=== PATIENT | female | born 1955 | race Caucasian/White ===

== ENCOUNTER → 2016-08-19 | Outpatient (CLI) | payer BC ==
--- NOTE | 2016-08-19 14:45 | KCIC ---
PROCEDURE Two-view chest HISTORY Productive cough. COMPARISON None FINDINGS The cardiac silhouette is mildly enlarged in transverse diameter. No evidence of active congestive failure. No pneumothorax, pleural effusion or focal airspace consolidation. IMPRESSION 1. No focal airspace consolidation. 2. The cardiac silhouette is mildly enlarged in transverse diameter. Electronically signed by: Tanner Gibbons MD (Aug 19, 2016 14:43:36)
== END | disposition home or self-care (01) ==
LOC: KCIC 14:08
PROVIDERS: ATTEND Physician Assistant Medical
DX: I51.7 Cardiomegaly (principal)
CPT/HCPCS: 71020

== ENCOUNTER → 2017-05-28 | Outpatient (CLI) | payer BC ==
--- NOTE | 2017-05-28 12:56 | CARD ---
APPROVED REPORT EXAM: Two-dimensional and M-mode echocardiogram with Doppler and color Doppler. Other Information Quality : GoodHR: 68bpm INDICATION Hypertension/HCVD RISK FACTORS Hypertension 2D DIMENSIONS RVDd2.7 (2.9-3.5cm)Left Atrium(2D)3.2 (1.6-4.0cm) IVSd1.3 (0.7-1.1cm)Aortic Root(2D)2.3 (2.0-3.7cm) LVDd3.6 (3.9-5.9cm)LVOT Diameter1.8 (1.8-2.4cm) PWd1.0 (0.7-1.1cm)IVSs1.7 (0.8-1.2cm) LVDs2.1 (2.5-4.0cm)FS (%) 40.8 % PWs1.4 (0.8-1.2cm)SV39.8 ml LVEF(%)72.6 (>50%) M-Mode DIMENSIONS IVSd1.03 (0.7-1.1cm)LVDd4.20 (4.0-5.6cm) PWd1.24 (0.7-1.1cm)IVSs1.24 cm FS (%) 45 %LVDs2.31 (2.0-3.8cm) PWs1.78 cmLVEF(%)77 (>50%) Aortic Valve AoV Peak Boone.165.2cm/sAoV VTI43.1cm AO Peak GR.10.9mmHgLVOT Peak Boone.97.3cm/s LVOT VTI 25.79cmAO Mean GR.7mmHg SHAQUILLE (VMAX)1.54uo3NQQ (VTI)1.60cm2 Mitral Valve MV E Hljgpmfb939.0cm/sMV E Peak Gr.151mmHg MV DECEL EHGW623zwOB A Tqcfsqbg15.3cm/s MV NVC24jvB/A Ratio1.9 MVA (PHT)4.07cm2 TDI E/Lateral E'12.7E/Medial E'14.5 Pulmonary Valve PV Peak Nsaoyyhg04.9cm/sPV Peak Grad.2mmHg Tricuspid Valve TR P. Qaegkkcs489rt/sRAP HFEESHUY9rjCf TR Peak Gr.47qpJkGLGE03udNf LEFT VENTRICLE The left ventricle is normal size. There is mild concentric left ventricular hypertrophy. The left ve ntricular systolic function is normal. The ejection fraction is estimated at 60-65%. There is normal LV segmental wall motion. The left ventricular diastolic function and filling is normal for age. RIGHT VENTRICLE The right ventricle is normal size. There is normal right ventricular wall thickness. The right ventr icular systolic function is normal. ATRIA The left atrium size is normal. The right atrium size is normal. The interatrial septum is intact wit h no evidence for an atrial septal defect or patent foramen ovale as noted on 2-D or Doppler imaging. AORTIC VALVE The aortic valve is thickened but opens well. Doppler and Color Flow revealed trace aortic regurgitat ion. There is no significant aortic valvular stenosis. MITRAL VALVE The mitral valve is thickened but opens well. There is no evidence of mitral valve prolapse. There is no mitral valve stenosis. Doppler and Color-flow revealed moderate mitral regurgitation. TRICUSPID VALVE The tricuspid valve leaflets are thickened , but open well. Doppler and Color Flow revealed mild tric uspid regurgitation. PULMONIC VALVE Pulmonic valve was not visualized. Doppler and Color Flow revealed no pulmonic valvular regurgitation . There is no pulmonic valvular stenosis. GREAT VESSELS The aortic root is normal in size. The ascending aorta is normal in size. The IVC is normal in size a nd collapses >50% with inspiration. PERICARDIAL EFFUSION There is no pleural effusion. There is no evidence of significant pericardial effusion. Critical Notification Critical Value: No <Conclusion> The left ventricular systolic function is normal. The ejection fraction is estimated at 60-65%. There is normal LV segmental wall motion. Trace aortic regurgitation. Moderate mitral regurgitation. Mild tricuspid regurgitation. There is no evidence of significant pericardial effusion.
== END | disposition home or self-care (01) ==
LOC: ECHO 10:46
PROVIDERS: ATTEND Internal Medicine Cardiovascular Disease
DX: I11.9 Hypertensive heart disease without heart failure (principal); I34.0 Nonrheumatic mitral (valve) insufficiency
CPT/HCPCS: 93306

== ENCOUNTER → 2017-07-21 | Outpatient (CLI) | payer BC | END | disposition home or self-care (01) | LOC: KCIC 13:56 | DX: J20.9 Acute bronchitis, unspecified (principal) | CPT/HCPCS: 71046 ==

== ENCOUNTER → 2017-12-03 | Outpatient (CLI) | payer OTHER | END | disposition home or self-care (01) | LOC: ECHO 09:45 | DX: I34.0 Nonrheumatic mitral (valve) insufficiency (principal); I10 Essential (primary) hypertension; I51.7 Cardiomegaly | CPT/HCPCS: 93306 ==

== ENCOUNTER → 2017-12-08 | Outpatient (CLI) | payer OTHER ==
[2017-12-08 09:41] LABS: CHOLESTEROL 181 mg/dL (0-200); HDLC 59 mg/dL (40-60); LDLC 96 mg/dL (0-100); NON-HDL CHOLESTEROL 122 mg/dL (0-129); TRIGLYCERIDES 130 mg/dL (0-150); VLDLC 26 mg/dL (0-40)
[2017-12-08 09:54] LABS: CHOLESTEROL/HDL RATIO 3.1
== END | disposition home or self-care (01) ==
LOC: LAB 09:03
DX: E78.5 Hyperlipidemia, unspecified (principal)
CPT/HCPCS: 36415; 80061

== ENCOUNTER → 2017-12-23 | Outpatient (CLI) | payer OTHER | END | disposition home or self-care (01) | LOC: US 08:34 | DX: M79.604 Pain in right leg (principal); M79.605 Pain in left leg; M79.89 Other specified soft tissue disorders; I10 Essential (primary) hypertension | CPT/HCPCS: 93970 ==

== ENCOUNTER → 2018-03-29 | Outpatient (CLI) | payer OTHER | END | disposition home or self-care (01) | LOC: SPEC 17:03 | PROVIDERS: ATTEND Obstetrics & Gynecology | DX: Z12.4 Encounter for screening for malignant neoplasm of cervix (principal) | CPT/HCPCS: 88175 ==

== ENCOUNTER → 2018-04-21 | Outpatient (CLI) | payer OTHER ==
--- NOTE | 2018-04-27 10:56 | KCIC ---
EXAM: Bilateral digital screening mammogram with tomosynthesis. HISTORY: 62-year-old female presents for screening mammography. TECHNIQUE: Full-field digital craniocaudal and mediolateral oblique 2D and 3D tomosynthesis images of both breasts are obtained for evaluation. Computer aided detection with AnexonD software version 9.3 was applied. COMPARISON: 06/03/2017 and 06/03/2006 BREAST PARENCHYMAL DENSITY: Level C - Heterogeneously dense. FINDINGS: There are multiple circumscribed and partially circumscribed nodular densities throughout both breasts, the appearance and multiplicity of which favors a benign etiology such as cysts. There has been slight interval increase in a nodular density within the 3:30 position of the left breast at anterior to mid depth, also likely a cyst. There is no architectural distortion or suspicious calcification. IMPRESSION: BI-RADS Category 0: Additional imaging needed. RECOMMENDATION: Slight interval increase in a nodular density within the 3:30 position of the left breast, likely a cyst given the presence of multiple additional stable benign-appearing nodular densities within both breasts. Sonographic imaging of this location is recommended to confirm benignity. If your mammogram demonstrates that you have dense breast tissue, which could hide abnormalities, and if you have other risk factors for breast cancer that have been identified, you might benefit from supplemental screening tests that may be suggested by your ordering physician. Dense breast tissue, in and of itself, is a relatively common condition. This information is not provided to cause undue concern, but rather to raise your awareness and to promote discussion with your physician regarding the presence of other risk factors, in addition to dense breast tissue. A report of your mammography results will be sent to you and your physician. You should contact your physician if you have any questions or concerns regarding this report. Mammography is a sensitive method for finding small breast cancers, but it does not detect them all and is not a substitute for careful clinical examination. A negative mammogram does not negate a clinically suspicious finding and should not result in delay in biopsying a clinically suspicious abnormality. PQRS compliance statement - Patient information was entered into a reminder system with a target due date for the next mammogram. "Our facility is accredited by the [employer] Mammography [employer]." Electronically signed by: Светлана Sahni MD (04/27/2018 10:53 AM) [facility]
== END | disposition home or self-care (01) ==
LOC: KCIC MAMMO 14:18
PROVIDERS: ATTEND Obstetrics & Gynecology
DX: Z12.31 Encounter for screening mammogram for malignant neoplasm of breast (principal)
CPT/HCPCS: 77063; 77067

== ENCOUNTER → 2018-05-13 | Outpatient (CLI) | payer OTHER ==
--- NOTE | 2018-05-13 16:16 | KCIC ---
Left breast ultrasound: Reason for examination: Nodular densities on screening mammogram. Comparison is made to mammographic exam dated 04/21/2018. Left whole breast ultrasound including evaluation of all 4 quadrants and the retroareolar and axillary regions of the left breast was performed. There is ductal ectasia in the retroareolar 3:30 position and in the 6:00 position. In the 3:30 position 4.5 cm from the nipple, there is a 1.1 cm simple cyst. In the 3:00 position 6 cm from the nipple, there is a 5.7 mm cystic lesion. In the 6:00 position 4 cm from the nipple, there is a 1.7 cm hypoechoic somewhat heterogeneous nodule. This is adjacent to some dilated ducts could represent an intraductal papilloma and biopsy is recommended. In the 6:00 position 5 cm from the nipple, there is also a 7.5 mm hypoechoic nodule which could represent an intraductal papilloma. Biopsy is recommended. In the 11:00 position there is a 9.6 mm fibrocystic lesion with a benign appearance. No abnormal appearing lymph nodes are seen in the axilla. IMPRESSION: Solid-appearing nodular lesions in the 6:00 position 4 cm and 5 cm from the nipple measuring 1.7 and 7.5 mm in greatest dimensions. Recommend ultrasound guided biopsies of these lesions. Benign-appearing cystic and fibrocystic lesions also present measuring up to 1.1 cm in size. BI-RADS Category 4: Suspicious. These findings have been discussed with the patient and these results were also called to Dr. eHrnandez at 4:09 PM on 05/13/2018. "Our facility is accredited by the [employer] Mammography Program." This patient's information has been entered into a reminder system for the patient to be notified with the results of her examination and a target date for the next mammogram. Electronically signed by: Yesenia Cruz MD (05/13/2018 4:13 PM) [facility]
== END | disposition home or self-care (01) ==
LOC: KCIC US 13:11
PROVIDERS: ATTEND Obstetrics & Gynecology
DX: R92.8 Other abnormal and inconclusive findings on diagnostic imaging of breast (principal)
CPT/HCPCS: 76641

== ENCOUNTER → 2018-06-07 | Outpatient (CLI) | payer OTHER ==
[~2018-06-07] MED LIST: LIDOCAINE 1% Multi-Dose 20 ML VIAL. INJ ONE
--- NOTE | 2018-06-07 11:54 | RAD ---
DATE: June 07, 2018 EXAM: DIGITAL DIAGNOSTIC LT HISTORY: Postbiopsy clip placement x2. FINDINGS: 2 biopsy clips are seen adjacent to one another by only 5 mm. The more posterior clip is a Gel Jamir UltraCor clip and is associated with the 17 mm lesion located at the 6:00 position 4 cm from the nipple by ultrasound. The more anterior clip is an UltraClip which is associated with the 7.5 mm lesion located at the 6 clock position 5 cm from the nipple by ultrasound. IMPRESSION: 2 biopsy clips were placed during ultrasound-guided core biopsy sample of 2 nodules adjacent to one another at the 6 clock position of the left breast.
--- NOTE | 2018-06-07 16:23 | RAD ---
ULTRASOUND-GUIDED CORE BIOPSY OF THE LEFT BREAST Indications: 17 mm complex nodule of the 6 clock position of the left breast 4 cm from the nipple. Procedure: Sonography of the left breast was performed which demonstrates a 17 mm complex nodule 4 cm from the nipple. The procedure and possible complications including bleeding and infection were explained. The patient provided both verbal and written consent. An appropriate skin lyndsey was made on the left breast using ultrasound guidance. A timeout was performed which confirmed the name of the patient and date of and the type of procedure and the side of the procedure. Allergies to medications were reviewed. The patient's questions were answered. The left breast was prepped and draped in the usual sterile fashion. A total of 5 cc of 1% lidocaine was utilized for local anesthesia. Using sterile technique and ultrasound guidance, a small skin neck was made and a 13-gauge Bard needle cannula was directed to the edge of the nodule. A total of 4 14-gauge core biopsies were obtained coaxially through the needle cannula using ultrasound guidance. Mucinous material was seen oozing through the needle cannula. Sonographic spot images were obtained. Following this, a Gel Lyndsey breast biopsy marker clip was placed coaxially along the edge of the nodule using ultrasound guidance. A sonographic spot image demonstrates the biopsy clip adjacent to the nodule. Manual pressure was applied for 5 minutes and hemostasis was deemed adequate. Sterile Band-Aid was applied to the biopsy site. The patient tolerated the procedure well without complication. The biopsy samples were placed into formalin and sent to pathology for further evaluation. Follow-up will be with the patient's referring physician. IMPRESSION: Ultrasound-guided core biopsy sampling of the 17 mm nodule of the left breast at the 6 clock position was performed without complication. Pathology results pending. ULTRASOUND-GUIDED CORE BIOPSY OF THE LEFT BREAST Indications: 7.5 mm complex nodule at the 6 clock position of the left breast 5 cm from the nipple. Procedure: Sonography of the left breast was performed which demonstrates a 7.5 mm complex nodule at the 6 clock position of the left breast 5 cm from the nipple. The procedure and possible complications including bleeding and infection were explained. The patient provided both verbal and written consent. An appropriate skin lyndsey was made on the left breast using ultrasound guidance. A timeout was performed which confirmed the name of the patient and date of and the type of procedure and the side of the procedure. Allergies to medications were reviewed. The patient's questions were answered. The left breast was prepped and draped in the usual sterile fashion. A total of 5 cc of 1% lidocaine was utilized for local anesthesia. Using sterile technique and ultrasound guidance, a small skin neck was made and a 13-gauge Bard needle cannula was directed to the edge of the nodule. A total of 4 14-gauge core biopsies were obtained coaxially through the needle cannula using ultrasound guidance. Mucinous material was noted oozing through the needle cannula. Sonographic spot images were obtained. The nodule appears much smaller and is very difficult to see. Following this, an UltraClip breast biopsy marker clip was placed coaxially along the edge of the nodule using ultrasound guidance. The nodule and clip were very difficult to see due to the decrease in size of the nodule and air in the biopsy site. Manual pressure was applied for 5 minutes and hemostasis was deemed adequate. Sterile Band-Aid was applied to the biopsy site. The patient tolerated the procedure well without complication. The biopsy samples were placed into formalin and sent to pathology for further evaluation. Follow-up will be with the patient's referring physician. IMPRESSION: Ultrasound-guided core biopsy sampling of the 7.5 mm nodule of the left breast at the 6:00 position was performed without complication. Pathology results pending.
--- NOTE | 2018-06-24 15:40 | PATHOLOGY ---
[facility] Accession Number: [id number] . 01 Material submitted: . PART A: LEFT BREAST MASS, 60C 4CFN PART B: LEFT BREAST MASS, 60C 5CFN . 01 Clinical history: . Left breast mass . 02 Diagnosis: A. Breast tissue, left breast biopsy 4CFN needle biopsies: - Intraductal papilloma with usual ductal epithelial hyperplasia without atypia. - Proliferative fibrocystic changes with the following components: - Mild to moderate ductal epithelial hyperplasia without atypia. - Stromal fibrosis. - Duct ectasia. - Cystic change. - Papillary apocrine metaplasia, florid. . B. Breast tissue, left breast mass 5CFN needle biopsies: - Fibrocystic changes, focal, with the following components: - Stromal fibrosis. - Duct ectasia. - Cystic change. . (JPM:ibrahima; 06/08/2018) MBR/06/08/2018 . 02 Comment: There is no atypia or evidence of malignancy. . (JPM:brand sales consultant; 06/08/2018) . 02 Electronically signed: . Lorenzo Rene MD, Pathologist NPI- [id number] . 01 Gross description: . A. The specimen is received in formalin, labeled "Ania Jane, left breast 60c, 4cFN", are several fibrofatty cores and its fragments measuring 1.0 x 0.4 x 0.2 cm in aggregate, the specimen is entirely submitted in A1-A3. Specimen excised at: 11:00 on 06/07/18, placed in formalin at: 1104 on 06/07/18, formalin exposure: 12 hours and 36 minutes. . B. The specimen is received in formalin, labeled "Ania Jane, left breast 60c, 5cFN", are several fibrofatty cores and its fragments measuring 1.0 x 0.6 x 0.2 cm in aggregate, the specimen is entirely submitted in B1-B3. Specimen excised at: 11:30 on 06/07/18, placed in formalin at: 11:32 on 06/07/18, formalin exposure:12 hours 8 minutes. (SWS; 06/07/2018) SHS/SHS . 02 Pathologist provided ICD-10: D24.2, N62, N60.12, N60.32, N60.42, N60.82 . 02 CPT . 063079, 236279 Specimen Comment: A courtesy copy of this report has been sent to Specimen Comment: [phone], , . Specimen Comment: Report sent to ,DR LINCOLN / DR GOMEZ Specimen Comment: A duplicate report has been generated due to demographic updates. Performed at: 01 [facility] [address], [place], [place] [id number] MD Perfecto Storm MD Phone: [phone] Performed at: 02 [facility] [address], [place] [id number] MD Lorenzo Rene MD Phone: [phone]
== END | disposition home or self-care (01) ==
LOC: US 09:48
PROVIDERS: ATTEND Obstetrics & Gynecology
DX: D24.2 Benign neoplasm of left breast (principal); N60.32 Fibrosclerosis of left breast; N60.42 Mammary duct ectasia of left breast; I10 Essential (primary) hypertension; E78.5 Hyperlipidemia, unspecified; Z90.710 Acquired absence of both cervix and uterus
CPT/HCPCS: 19083; 19084; 77065; 88305; C1713; 19081; 76942

== ENCOUNTER → 2019-03-03 | Outpatient (CLI) | payer MEDICARE ==
[~2019-03-03] MED LIST changes: +ASPI-171 PO; +ESTR2TAB PO; +HYDR12.575 PO; -LIDOCAINE 1% Multi-Dose 20 ML VIAL. INJ ONE; +LOSA100T14 PO; +METO50TA6 PO; +OMEG1CAP2 PO; +PITA2TAB2 PO; +SOLI5TAB2 PO
--- NOTE | 2019-03-03 13:07 | CARD ---
MR#: [id number] Date of Study: 03/03/2019 Ordering Physician: MACEY VARGAS, Referring Physician: MACEY VARGAS Tech: Thao Garcia RDCS APPROVED REPORT EXAM: Two-dimensional and M-mode echocardiogram with Doppler and color Doppler. Other Information Quality : AverageHR: 77bpm Rhythm : NSR INDICATION Hypertension/HCVD 2D DIMENSIONS RVDd2.8 (2.9-3.5cm)Left Atrium(2D)3.4 (1.6-4.0cm) IVSd1.1 (0.7-1.1cm)Aortic Root(2D)2.4 (2.0-3.7cm) LVDd4.5 (3.9-5.9cm)LVOT Diameter1.8 (1.8-2.4cm) PWd1.0 (0.7-1.1cm)LVDs3.3 (2.5-4.0cm) FS (%) 27.7 %SV49.7 ml LVEF(%)53.8 (>50%) M-Mode DIMENSIONS Left Atrium(MM)3.86 (2.5-4.0cm)Aortic Root2.50 (2.2-3.7cm) Aortic Valve AoV Peak Boone.180.9cm/sAoV VTI42.4cm AO Peak GR.13.1mmHgLVOT Peak Boone.100.6cm/s AO Mean GR.7mmHgAVA (VMAX)1.42cm2 SHAQUILLE (VTI)1.60cm2 Mitral Valve MV E Bbqmqaed340.2cm/sMV E Peak Gr.105mmHg MV DECEL MFNO846urVQ A Bguqejlh58.4cm/s MV E Mean Gr.2mmHgE/A Ratio1.7 Pulmonary Valve PV Peak Mupspaao15.6cm/s Tricuspid Valve TR P. Gtehjzmf872ey/sRAP MLSLQSXT1xkOq TR Peak Gr.35swUdKSYG55vqJr Pulmonary Vein S1 Xrweqwtd89.3cm/sD2 Usyjepmv44.1cm/s PVa ajyppelt719bqcl LEFT VENTRICLE The left ventricle is normal size. There is borderline concentric left ventricular hypertrophy. The l eft ventricular systolic function is normal. The Ejection Fraction is 55-60%. There is normal LV segm ental wall motion. Transmitral Doppler flow pattern is Grade II-pseudonormal filling dynamics. RIGHT VENTRICLE The right ventricle is normal size. There is normal right ventricular wall thickness. The right ventr icular systolic function is normal. ATRIA The left atrium size is normal. The right atrium size is normal. The interatrial septum is intact wit h no evidence for an atrial septal defect or patent foramen ovale as noted on 2-D or Doppler imaging. AORTIC VALVE The aortic valve is normal in structure and function. The aortic valve is trileaflet. Doppler and Col or Flow revealed trace aortic regurgitation. There is no significant aortic valvular stenosis. There is no aortic valvular vegetation. MITRAL VALVE The mitral valve is normal in structure and function. There is no evidence of mitral valve prolapse. There is no mitral valve stenosis. Doppler and Color-flow revealed mild to moderate mitral regurgitat ion. TRICUSPID VALVE The tricuspid valve is normal in structure and function. Doppler and Color Flow revealed trace tricus pid regurgitation. There is moderate pulmonary hypertension. The PA pressure was estimated at 41 mmHg . There is no tricuspid valve prolapse or vegetation. There is no tricuspid valve stenosis. PULMONIC VALVE The pulmonic valve is not well visualized. GREAT VESSELS The aortic root is normal in size. The ascending aorta is normal in size. The IVC is normal in size a nd collapses >50% with inspiration. PERICARDIAL EFFUSION There is no evidence of significant pericardial effusion. Critical Notification Critical Value: No <Conclusion> The left ventricular systolic function is normal. The Ejection Fraction is 55-60%. There is normal LV segmental wall motion. Mild to moderate mitral regurgitation. Trace tricuspid regurgitation. There is moderate pulmonary hypertension. The PA pressure was estimated at 41 mmHg. There is no evidence of significant pericardial effusion. Signed by : Macey Vargas, Electronically Approved : 03/03/2019 09:44:45
== END | disposition home or self-care (01) ==
LOC: ECHO 08:54
PROVIDERS: ATTEND Internal Medicine Cardiovascular Disease
DX: I08.1 Rheumatic disorders of both mitral and tricuspid valves (principal); I27.20 Pulmonary hypertension, unspecified
CPT/HCPCS: 93306

== ENCOUNTER → 2019-06-28 | Outpatient (CLI) | payer MEDICARE ==
[~2019-06-28] MED LIST changes: +GADOTERATE 7.5 MMOL/15ML VIAL. IVP ONE
--- NOTE | 2019-06-28 13:28 | KCIC ---
MRI of the Brain/IACs without and with contrast 06/28/2019 Clinical History: Dizziness. Left-sided hearing loss for several months. Technique: Unenhanced T1-weighted sagittal and axial and FLAIR, T2-weighted, gradient echo and diffusion-weighted axial images of the brain were obtained. Thin section T1-weighted axial and T2-weighted axial and coronal images through the IACs were obtained. After the intravenous administration of 14 cc of DOTAREM, enhanced T1-weighted axial and coronal images of the brain were obtained. Additionally enhanced thin section T1-weighted axial and coronal images through the IACs were obtained. Findings:No previous imaging studies are available for comparison There is generalized parenchymal atrophy. Patchy and several small scattered areas of increased signal intensity are seen within the periventricular and subcortical white matter of both cerebral hemispheres on the FLAIR and T2-weighted images consistent with areas of very mild small vessel ischemic disease. No acute parenchymal abnormality is seen. No extra-axial fluid collection is seen. There is no MRI evidence of acute ischemia/infarction. No abnormal area contrast enhancement is seen. MRI images through the IACs are within normal limits. No abnormal soft tissue mass or area of abnormal contrast enhancement is seen. Mild mucosal thickening in seen scattered throughout the paranasal sinuses. There are minimal bilateral mastoid effusions. Normal flow voids are seen within the major vascular structures surrounding the brain parenchyma. Impression: 1. No acute parenchymal abnormality is seen. 2. Negative MRI of the IACs. Electronically signed by: James Mayes MD (06/28/2019 1:26 PM) [facility]
== END | disposition home or self-care (01) ==
LOC: KCIC MRI 09:27
PROVIDERS: ATTEND Otolaryngology
DX: H74.8X3 Other specified disorders of middle ear and mastoid, bilateral (principal); H90.42 Sensorineural hearing loss, unilateral, left ear, with unrestricted hearing on the contralateral side; G31.9 Degenerative disease of nervous system, unspecified; J34.89 Other specified disorders of nose and nasal sinuses
CPT/HCPCS: 70553; A9575

== ENCOUNTER → 2020-03-12 | Outpatient (CLI) | payer MEDICARE ==
[~2020-03-12] MED LIST changes: -GADOTERATE 7.5 MMOL/15ML VIAL. IVP ONE
--- NOTE | 2020-03-12 16:31 | CARD ---
MR#: [id number] Date of Study: 03/12/2020 Ordering Physician: MACEY GOMEZ, Referring Physician: MACEY GOMEZ Tech: Shereen Palmer RDCS APPROVED REPORT EXAM: Two-dimensional and M-mode echocardiogram with Doppler and color Doppler. Other Information Quality : Fair INDICATION Hypertension/HCVD 2D DIMENSIONS RVDd2.7 (2.9-3.5cm)Left Atrium(2D)2.9 (1.6-4.0cm) IVSd0.8 (0.7-1.1cm)Aortic Root(2D)2.2 (2.0-3.7cm) LVDd4.6 (3.9-5.9cm)LVOT Diameter1.9 (1.8-2.4cm) PWd0.8 (0.7-1.1cm)LVDs3.1 (2.5-4.0cm) FS (%) 32.4 %SV58.2 ml LVEF(%)60.8 (>50%) Aortic Valve AoV Peak Boone.137.5cm/sAoV VTI31.2cm AO Peak GR.7.6mmHgLVOT Peak Boone.93.7cm/s AO Mean GR.5mmHgAVA (VMAX)1.87cm2 Mitral Valve MV E Qribrdog442.3cm/sMV DECEL WDLY503ak MV A Mdsfeggo46.9cm/sE/A Ratio1.4 Tricuspid Valve TR P. Phbmpqli129ti/sRAP AYTRXUJK0jhDz TR Peak Gr.20vsDbEBNJ55piKz Pulmonary Vein S1 Lzocimjj78.6cm/sD2 Jtxxuqoj41.0cm/s LEFT VENTRICLE The left ventricle is normal size. There is normal left ventricular wall thickness. The left ventricu lar systolic function is normal. The Ejection Fraction is 55-60%. There is normal LV segmental wall m otion. Transmitral Doppler flow pattern is Grade I-abnormal relaxation pattern. RIGHT VENTRICLE The right ventricle is normal size. The right ventricular systolic function is normal. ATRIA The left atrium size is normal. The right atrium size is normal. The interatrial septum is intact wit h no evidence for an atrial septal defect or patent foramen ovale as noted on 2-D or Doppler imaging. AORTIC VALVE The aortic valve is not well visualized but appears to be functioning normally by Doppler interrogati on. Doppler and Color Flow revealed no significant aortic regurgitation. There is no significant aort ic valvular stenosis. MITRAL VALVE The mitral valve is normal in structure and function. There is no evidence of mitral valve prolapse. There is no mitral valve stenosis. Doppler and Color-flow revealed mild mitral regurgitation. TRICUSPID VALVE The tricuspid valve is normal in structure and function. Doppler and Color Flow revealed trace tricus pid regurgitation. The PA pressure was estimated at 26 mmHg. There is no tricuspid valve stenosis. PULMONIC VALVE The pulmonic valve is not well visualized. Doppler and Color Flow revealed no pulmonic valvular regur gitation. There is no pulmonic valvular stenosis. GREAT VESSELS The aortic root is normal in size. The ascending aorta is normal in size. The IVC is normal in size a nd collapses >50% with inspiration. PERICARDIAL EFFUSION There is no evidence of significant pericardial effusion. Critical Notification Critical Value: No <Conclusion> The left ventricular systolic function is normal. The Ejection Fraction is 55-60%. There is normal LV segmental wall motion. Transmitral Doppler flow pattern is Grade I-abnormal relaxation pattern. Mild mitral regurgitation. Trace tricuspid regurgitation. The PA pressure was estimated at 26 mmHg. There is no evidence of significant pericardial effusion. Signed by : Macey Gomez, Electronically Approved : 03/12/2020 16:30:56
== END | disposition home or self-care (01) ==
LOC: ECHO 13:00
PROVIDERS: ATTEND Internal Medicine Cardiovascular Disease
DX: I34.0 Nonrheumatic mitral (valve) insufficiency (principal); I10 Essential (primary) hypertension
CPT/HCPCS: 93306